=== PATIENT | female | born 1950 | race Caucasian/White ===

== ENCOUNTER → 2016-04-11 | Outpatient (CLI) | payer OTHER ==
--- NOTE | 2016-04-11 17:55 | CT ---
Unenhanced CT Scan of the Chest CLINICAL HISTORY: 65-year-old female with no prior tobacco use history who was noted to have an inde terminate nodule in the superior right lower lobe on previous CT imaging. ICD-10 Diagnostic Codes: R05 and R91. TECHNIQUE: A multidetector unenhanced helical CT scan was obtained from the base of the neck inferio rly to the upper abdomen, with images reformatted at 2.50- and 1.25-mm increments, and reviewed at a variety of window/level settings. Parasagittal and paracoronal reconstructed images are reviewed on the workstation. The DFOV is 34.4 cm. A dose reduction protocol was used. COMPARISON STUDY: Unenhanced CT imaging of the chest, dated September 05, 2015. FINDINGS: There is a stable 3 x 5 mm nodule adjacent to some bifurcating pulmonary vasculature in th e anterior portion of the superior segment of the right lower lobe just posterior to the right major fissure (as noted on series 3, images 103-106, and on coronal series 400, images 76-79). Because thi s patient is at low risk with no prior tobacco use, Fleischner Society recommends follow up at 12 mon ths from the initial CT scan. There is some minimal apical pleural thickening. There is no other pulmonary nodule, focal infiltrat e, pleural effusion, or adenopathy. The thyroid gland is diminutive. The ascending thoracic aorta i s borderline aneurysmal, measuring 3.8 x 4.0 cm. The descending thoracic aorta measures 2.8 x 2.5 cm . These findings are unchanged. The visualized upper abdomen is unremarkable. The osseous structur es are age-appropriate, with a mild upper thoracic kyphosis and some degenerative changes, with ventr al traction spurs. There is some inferior cortical calcification at T9-T10. IMPRESSION: 1. There has been no interval change in the 3 x 5 mm nodule in the anterior portion of the superior segment of the right lower lobe. One additional follow up in six months is recommended to assure a 1 2 month stability in this low-risk patient. 2. 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
== END ==
LOC: CIMAGING 11:00
PROVIDERS: ATTEND Specialist
DX: R91.1 Solitary pulmonary nodule (principal)
CPT/HCPCS: 71250-PO

== ENCOUNTER → 2016-09-12 | Outpatient (CLI) | payer OTHER | LOC: CIMAGING 10:38 | PROVIDERS: ATTEND Family Medicine | DX: S59.902A Unspecified injury of left elbow, initial encounter (principal) | CPT/HCPCS: 73080-PO ==

== ENCOUNTER → 2016-10-28 | Outpatient (CLI) | payer OTHER | LOC: CIMAGING 09:50 | PROVIDERS: ATTEND Specialist | DX: R91.1 Solitary pulmonary nodule (principal) | CPT/HCPCS: 71250-PO ==